=== PATIENT | male | born 1960 | race Caucasian/White ===

== ENCOUNTER 2021-06-17 13:45 | Emergency (ER) | payer SELFPAY ==
[2021-06-17] MEDS ORDERED: Calcium Chloride 1 GM/10 ML Abboject SYRINGE ONE (13:47)
[2021-06-17] MEDS ORDERED: EPINEPHrine 1 MG/10 ML Abboject SYRINGE ONE (13:47)
== END 2021-06-17 14:00 | disposition expired ==
LOC: EDBD 13:45 → ERS 13:45
DX: S21.332A Puncture wound without foreign body of left front wall of thorax with penetration into thoracic cavity, initial encounter (principal); S25.09XA Other specified injury of thoracic aorta, initial encounter
CPT/HCPCS: 32551; 36415; 36430; 71045; 74018; 86850; 86900; 86901; 92950; 96374; 96375; G0390; J0171; P9016